=== PATIENT | male | born 1975 | race Caucasian/White ===

== ENCOUNTER → 2019-05-28 | Outpatient (CLI) | payer BC | LOC: COL.RAD 07:36 | DX: R74.8 Abnormal levels of other serum enzymes (principal) ==

== ENCOUNTER → 2021-01-04 | Outpatient (CLI) | payer BC | LOC: MC.RAD | DX: N62 Hypertrophy of breast (principal); N63.10 Unspecified lump in the right breast, unspecified quadrant ==